=== PATIENT | male | born 1980 | race Two or more races ===

== ENCOUNTER 2018-01-17 13:12 | Emergency (ER) | payer SELFPAY ==
[~2018-01-17] VITALS: Ht 172.7 cm; Wt 81.6 kg
[2018-01-17 13:31] VITALS: BP 118/90
== END 2018-01-17 13:52 | disposition left against medical advice (07) ==
LOC: ER 13:16
DX: R07.9 Chest pain, unspecified (principal); Z53.21 Procedure and treatment not carried out due to patient leaving prior to being seen by health care provider

== ENCOUNTER 2018-10-28 14:50 | Emergency (ER) | payer SELFPAY ==
[~2018-10-28] VITALS: Ht 170.2 cm; Wt 98.4 kg
[2018-10-28 14:58] VITALS: BP 131/82
[2018-10-28] MEDS ORDERED: ASPirin 81 mg TAB PO ONE (15:15)
[2018-10-28 15:20] LABS: Basophils # (auto) 0.1 uL; Basophils % (auto) 0.7 % (0.0-2.0); Eosinophils # (auto) 0.1 uL; Eosinophils % (auto) 0.9 % (0.0-7.0); Hematocrit 47.7 % (41.0-53.0); Hemoglobin 16.1 g/dL (13.5-17.5); Lymphocytes # (auto) 3.6 uL; Lymphocytes % (auto) 29.6 % (10.0-50.0); Mean Corpuscular Hemoglobin 27.2 pg (28.0-32.0); Mean Corpuscular Hgb Conc. 33.7 g/dL (32.0-36.0); Mean Corpuscular Volume 80.5 fL (80.0-100.0); Monocytes # (auto) 0.9 uL; Monocytes % (auto) 7.2 % (0.0-12.0); Neutrophils # (auto) 7.5 uL; Neutrophils % (auto) 61.6 % (37.0-80.0); Nucleated Red Blood Cells % 0.1 %; Platelet Count (auto) 297 10^3/uL (140-450); Red Blood Cells 5.93 10^6/uL (4.5-5.90); Red Cell Distribution Width 14.2 % (11.8-14.3); White Blood Cell 12.2 10^3/uL (4.4-10.8)
[2018-10-28 15:37] LABS: Alanine Aminotransferase 30 U/L (16-61); Albumin 3.5 g/dL (3.4-5.0); Anion Gap 6 (5-15); Aspartate Aminotransferase 15 U/L (15-37); Blood Urea Nitrogen 16 mg/dL (7-18); Calcium 8.7 mg/dL (8.5-10.1); Carbon Dioxide 26 mmol/L (21-32); Chloride 106 mmol/L (98-107); Glucose 88 mg/dL (74-106); Magnesium 2.2 mg/dL (1.6-2.6); Potassium 3.4 mmol/L (3.5-5.1); Sodium 138 mmol/L (136-145)
[2018-10-28 15:40] LABS: INR 0.99 (0.9-1.15); Prothrombin Time 10.6 sec (9.27-12.13)
[2018-10-28 15:42] LABS: Alkaline Phosphatase 96 U/L (45-117); BUN/Creatinine Ratio 17.4; Bilirubin, Total 0.2 mg/dL (0.2-1.0); GFR African American 118 mL/min; GFR Non-African American 97 mL/min; Total Protein 7.4 g/dL (6.4-8.2)
== END 2018-10-28 20:59 | disposition left against medical advice (07) ==
LOC: ER 14:52
DX: R07.89 Other chest pain (principal); F17.210 Nicotine dependence, cigarettes, uncomplicated; Z53.29 Procedure and treatment not carried out because of patient's decision for other reasons
CPT/HCPCS: 36415; 71045; 80053; 83735; 83880; 84484; 85025; 85610; 85730; 93005; 94761